=== PATIENT | female | born 1965 | race Caucasian/White ===

== ENCOUNTER → 2017-01-16 | Outpatient (CLI) | payer OTHER ==
--- NOTE | ~2017-01-16 | US98 ---
[facility] A Service of [facility] & [facility] RADIOLOGY TEXT RESULTS PATIENT: ESVIN GAN LOCATION: [facility] : [birth year] UNIT #: [id number] AGE: [address]: CYNTHIA FORBES SEX: F ORDER DR: [id number] [facility] [address] [place], [place] [address] [id number] O MR#: [id number] Acc #: [id number] NAME: ESVIN GAN : 1965 SEX: F STUDY DATE/TIME: 01/16/2017 10:00 UNIT: [facility] ROOM: STUDY DESCRIPTION: US Pelvic Non-OB Complete Attending Physician: Cynthia Forbes M.D. Referring Physician: Aldo Del Cid M.D. Ordering Physician: Cynthia Forbes M.D. Primary Care Physician: Aldo Del Cid M.D. MEDICAL IMAGING REPORT This report is preliminary unless electronic signature is present EXAM Transabdominal and transvaginal pelvic ultrasound 01/16/2017 HISTORY Irregular menstrual bleeding since August 2016. Bled for 2 months with pelvic cramping. Post menopausal bleeding. FINDINGS Transabdominal and transvaginal pelvic ultrasound was performed. Endovaginal ultrasound was performed for attempted better visualization of the adnexal structures. The bladder is normal in appearance. Uterus measures 11.1 cm craniocaudal x 4.8 cm AP x 5.6 cm transverse. The endometrial stripe measures 5 mm which is abnormally thickened for a patient with post menopausal bleeding. Clinical correlation is recommended. There is a 1.8 cm fibroid within the uterine body. The right ovary measured 1.1 cm x 1.6 cm x 6 mm while the left ovary measured 2 cm x 2.5 cm x 1.2 cm. There is no adnexal mass. There is no free fluid in the pelvis. Color-flow Doppler images show normal blood flow to both ovaries. IMPRESSION 1. Abnormally thickened endometrial stripe in a patient with post menopausal bleeding measuring 5 mm. Clinical correlation is recommended. 2. 1.8 cm fibroid within the uterine body. 3. The ovaries appear normal bilaterally. No adnexal mass. No free fluid in the pelvis. STAT * RESULT Dictated by... [facility] A Service of [facility] & [facility] RADIOLOGY TEXT RESULTS PATIENT: ESVIN GAN LOCATION: [facility] : [birth year] UNIT #: [id number] AGE: [address]: CYNTHIA FORBES SEX: F ORDER DR: Sunny Guerra M.D. THIS IS AN ELECTRONICALLY VERIFIED REPORT Sunny Guerra M.D. at 01/17/2017 8:03 AM [place] TD: 01/16/2017 17:27 JOB #: [id number] MEDICAL IMAGING REPORT Page 1 of 1 COPY
== END | disposition home or self-care (01) ==
LOC: CWCC 09:38
DX: N95.0 Postmenopausal bleeding (principal); R93.8 Abnormal findings on diagnostic imaging of other specified body structures; D25.9 Leiomyoma of uterus, unspecified
CPT/HCPCS: 76830; 76856

== ENCOUNTER 2017-06-28 15:53 | Emergency (ER) | payer OTHER ==
[~2017-06-28] VITALS: Ht 165.1 cm; Wt 142.9 kg
[2017-06-28 17:04] LABS: PARTIAL THROMBOPLASTIN TIME 29.4 SECONDS (23.5-31.3); PROTHROMBIN TIME (PATIENT) 11.1 SECONDS (10.0-11.7)
[2017-06-28 17:05] LABS: BASOPHIL# 0.1 X10e3 (0-0.3); BASOPHIL% 0.7 % (0-2.5); DIFF IND NO; EOSINOPHIL# 0.1 X10e3 (0-0.7); EOSINOPHIL% 1.2 % (0.0-7.0); HEMATOCRIT 40.5 % (35.0-45.0); HEMOGLOBIN 13.6 gm/dL (12.0-16.0); LYMPHOCYTE# 1.5 X10e3 (1.0-3.5); LYMPHOCYTE% 18.3 % (17.0-45.0); MEAN CELL VOLUME 94.3 FL (83-96); MEAN CORPUSCULAR HEMOGLOBIN 31.7 PG (28-34); MEAN CORPUSCULAR HGB CONC 33.6 g/dL (30-36); MEAN PLATELET VOLUME 8.7 FL (6.5-11.5); MONOCYTE# 0.6 X10e3 (0-1.0); MONOCYTE% 7.6 % (3.0-12.0); NEUTROPHIL% 72.2 % (40-75); PLATELET COUNT 255 X10e3 (140-420); RED CELL DISTRIBUTION WIDTH 14.2 % (11.0-15.5); WHITE BLOOD COUNT 8.3 X10e3 (4.0-10.5)
[2017-06-28 17:16] LABS: ALBUMIN SERUM 3.9 g/dL (3.5-5.0); ALKALINE PHOSPHATASE 66 U/L (32-92); ALT (SGPT) 11 U/L (10-40); AST (SGOT) 16 U/L (10-42); BILIRUBIN,TOTAL 0.4 mg/dL (0.2-2.0); BLOOD UREA NITROGEN 17 mg/dL (9-23); BUN/CREATININE RATIO 28.33; CALCIUM SERUM 8.6 mg/dL (8.4-10.2); CARBON DIOXIDE 28 mmol/L (22-31); CHLORIDE 102 mmol/L (100-111); CREATININE SERUM 0.6 mg/dL (0.6-1.4); GLUCOSE FASTING 106 mg/dL (70-110); POTASSIUM 3.7 mmol/L (3.5-5.1); PROTEIN TOTAL SERUM 7.4 g/dL (6.0-8.3); SODIUM 137 mmol/L (135-145)
[2017-06-28 17:18] LABS: BILIRUBIN, DIRECT <0.1 mg/dL (0.0-0.2); BILIRUBIN,INDIRECT 0.3 mg/dL (0.0-0.9)
== END 2017-06-28 17:45 | disposition home or self-care (01) ==
LOC: CED 15:53 → CFTX 15:53
PROVIDERS: Physician Assistant
DX: N93.8 Other specified abnormal uterine and vaginal bleeding (principal); F32.9 Major depressive disorder, single episode, unspecified; Z88.5 Allergy status to narcotic agent
CPT/HCPCS: 36415; 80048; 80076; 85025; 85610; 85730; 99284